=== PATIENT | female | born 2000 | race Two or more races ===

== ENCOUNTER 2024-08-31 06:21 | Emergency (ER) | payer MEDICAID, OTHER ==
[~2024-08-31] VITALS: Ht 152.4 cm; Wt 73.4 kg
--- NOTE | 2024-08-31 06:48 | ED.PDOC ---
History of Present Illness HPI Comments 24-year-old female with no reported PMHx or PSHx presents with a chief complaint of sore throat x 2 months. Patient mentions that she was diagnosed with strep throat in July and was given Amoxicillin. Patient reports that she finished that course of antibiotics and still had throat pain and went to a second urgent care and got a "stronger antibiotic" for her throat. Patient is now reporting that she still has irritation in her throat. Patient denies any painful swallowing and is able to handle her secretions. No other symptoms or modifying factors present at this time. 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 Hx Family History Family History: Reviewed,noncontributory to illness Social History Smoker: Non-Smoker Alcohol: Denies ETOH Use Drugs: Denies Drug Use Lives In: Home Constitutional: denies: chills, diaphoresis, fatigue, fever, malaise, sweats, weakness, others EENTM: reports: throat pain; denies: blurred vision, double vision, ear bleeding, ear discharge, ear drainage, ear pain, ear ringing, eye pain, eye redness, hearing loss, mouth pain, mouth swelling, nasal discharge, nose bleeding, nose congestion, nose pain, photophobia, tearing, throat swelling, voice changes, others Respiratory: denies: cough, hemoptysis, orthopnea, SOB at rest, shortness of breath, SOB with excertion, stridor, wheezing, others Cardiovascular: denies: chest pain, dizzy spells, diaphoresis, Dyspnea on exertion, edema, irregular heart beat, left arm pain, lightheadedness, palpitations, PND, syncope, others Gastrointestinal: denies: abdomen distended, abdominal pain, blood streaked bowels, constipated, diarrhea, dysphagia, difficulty swallowing, hematemesis, melena, nausea, poor appetite, poor fluid intake, rectal bleeding, rectal pain, vomiting, others Genitourinary: denies: abnormal vagina bleeding, burning, dyspareunia, dysuria, flank pain, frequency, hematuria, incontinence, pain, , vagina discharge, urgency, others Neurological: denies: dizziness, fainting, headache, left sided numbness, left sided weakness, numbness, paresthesia, pre-existing deficit, right sided numbness, right sided weakness, seizure, speech problems, tingling, tremors, weakness, others Musculoskeletal: denies: back pain, gout, joint pain, joint swelling, muscle pain, muscle stiffness, neck pain, others Integumetry: denies: bruises, change in color, change in hair/nails, dryness, laceration, lesions, lumps, rash, wounds, others Allergic/Immunocompromised: denies: Difficulty Healing, Frequent Infections, Hives, Itching, others Hematologic/Lymphatic: denies: anemia, blood clots, easy bleeding, easy bruising, swollen glands, others Endocrine: denies: excessive hunger, excessive sweating, excessive thirst, excessive urination, flushing, intolerance to cold, intolerance to heat, unexp lained weight gain, unexplained weight loss, others Psychiatric: denies: anxiety, bipolar disorder, depression, hopeless, panic disorder, schizophrenia, sleepless, suicidal, others All Other Systems: Reviewed and Negative Physical Exam General Appearance: No Apparent Distress, Normal HEENT: Normal ENT Inspection, Pharynx Normal, TMs Normal Neck: Full Range of Motion, Non-Tender, Normal, Normal Inspection Respiratory: Chest Non-Tender, Lungs Clear, No Accessory Muscle Use, No Respiratory Distress, Normal Breath Sounds Cardiovascular: No Edema, No JVD, No Murmur, No Gallop, Normal Peripheral Pulse s, Regular Rate/Rhythm Breast Exam: Deferred Gastrointestinal: No Organomegaly, Non Tender, No Pulsatile Mass, Normal Bowel Sounds, Soft Genitalia: Deferred Pelvic: Deferred Rectal: Deferred Extremities: No calf tenderness, Normal capillary refill, Normal inspection, Normal range of motion, Non-tender, No pedal edema Musculoskeletal : Apperance: Normal Neurologic: Alert, supervisor tank house II-XII nml as Tested, No Motor Deficits, Normal Affect, Normal Mood, No Sensory Deficits Cerebellar Function: Normal Reflexes: Normal Skin: Dry, Normal Color, Warm Lymphatic: No Adenopathy Was a procedure done? Was a procedure done?: No Differential Dx Considerations may include: Pharyngitis, viral syndrome X-Ray, Labs, Meds, VS Vital Signs Date Time Temp Pulse Resp B/P (MAP) Pulse Ox O2 Delivery O2 Flow Rate FiO2 08/31/24 06:38 99.1 75 16 135/75 (95) 100 Time of 1ST Reevaluation: 07:12 Reevaluation 1ST: Unchanged Patient Education/Counseling: Diagnosis, Treatment, Prognosis Family Education/Counseling: Diagnosis, Treatment, Prognosis Departure 1 Departure Time of Disposition: 06:51 (Patient with a sore throat that was on 2 rounds of antibiotics. We will treat patient for symptoms and have her follow up with the ENT.) Impression: Primary Impression: Pharyngitis Qualified Codes: J02.9 - Acute pharyngitis, unspecified Disposition: 01 HOME / SELF CARE / HOMELESS Condition: Stable Additional Instructions: You have pharyngitis. This usually resolves on its own over a period of several weeks. You can follow up with an Ear Nose and Throat Surgeon, Dr. Jus Brasher. Please call [phone] for an appointment. For pain you can take the followinam: Ibuprofen 400mg with food Noon: Acetaminophen 1000mg 4pm: Ibuprofen 400mg with food 8pm: Acetaminophen 1000mg If your symptoms worsen or you have any other concerns then please return to the ER. Discharged With: Self Critical Care Note Critical Care Time?: No Stability Stability form required: No I personally scribed for JESSICA CRUZ MD ([email or web address]) on 08/31/24 at 06:48. Electronically submitted by Azael Lux ([email or web address]). JESSICA CRUZ MD Aug 31, 2024 06:48
[2024-08-31] MEDS: DexAMETHasone SOD PHOS 10MG/1ML VIAL INJ PO ONE (06:54)
[2024-08-31 06:59] VITALS: BP 135/75; PULSE 75; RESP 16; TEMP 99.1; O2SAT 100
== END 2024-08-31 07:00 | disposition home or self-care (01) ==
LOC: ER 06:21
DX: J02.9 Acute pharyngitis, unspecified (principal)
CPT/HCPCS: 99283; J1100

== ENCOUNTER 2025-04-28 13:34 | Emergency (ER) | payer MEDICAID ==
[~2025-04-28] VITALS: Ht 154.9 cm; Wt 69.3 kg
[2025-04-28] MEDS ORDERED: NAPR-746 PO (14:39)
[2025-04-28] MEDS ORDERED: PRED20TA2 PO (14:39)
--- NOTE | 2025-04-28 14:39 | ED.PDOC ---
Eye-HPI HPI Comments 25-YEAR-OLD FEMALE PRESENTS TO THE ER WITH A THE CHIEF COMPLAINT OF A SORE THROAT RADIATING TO THE RIGHT EAR. PATIENT REPORTS ON HAVING BEEN EXPERIENCING A SORE THROAT FOR APPROXIMATELY ONE WEEK, WHICH HAS BEEN PROGRESSIVELY WORSE AND NOW RATING TO THE RIGHT EAR. THE PATIENT DENIES ANY RECENT EXPOSURE TO INDIVIDUALS WITH STREP THROAT AT THIS TIME. IN ADDITION TO THE SORE THROAT, THEY HAVE SYMPTOMS CONSISTENT WITH A COMMON COLD INCLUDING MUCUS PRODUCTION, COUGHING, AND NASAL CONGESTION. THE PATIENT HAS BEEN MANAGING THESE SYMPTOMS WITH THE [id number]-[id number] PAIN MEDICATIONS AND DAY NIGHT PILLS. THERE HAS A HISTORY OF A PREVIOUS THROAT FROM FOR WHICH THEY RECEIVED TREATMENT AT THE SAME FACILITY, WHERE STEROIDS WERE PRESCRIBED AND FOUND HELPFUL. DURING THE REVIEW OF SYMPTOMS THEY DENY ANY LOSS OF TASTE OR SMELL AT THIS TIME, AND MENTIONED THAT THE EAR IS STARTING TO HURT. DENIES ANY OTHER SYMPTOMS AT THIS TIME. DENIES FEVERS CHILLS NIGHT SWEATS UNINTENTIONAL WEIGHT LOSS DENIES PERSISTENT CHEST PAIN, SHORTNESS OF BREATH, LEG SWELLING DENIES HISTORY OF ASTHMA NOR ANY BREATHING CONDITIONS DENIES HISTORY OF PNEUMONIA DENIES RECENT INTERNATIONAL TRAVEL Chief Complaint: Sore Throat Time Seen by MD: 14:45 Reviewed Notes: Nurses Notes, Medications, Allergies Allergies: Coded Allergies: NO KNOWN ALLERGIES (Unverified , 08/31/24) Home Meds Active Scripts Naproxen (Naproxen) 500 Mg Tab, 500 MG PO BID for 10 Days, #20 TAB 0 Refills Prov:JAMAAL CARDOZO NP 04/28/25 Prednisone (Prednisone) 20 Mg Tab, 20 MG PO DAILY for 5 Days, #10 TAB 0 Refills Prov:JAMAAL CARDOZO NP 04/28/25 Information Source: Patient Mode of Arrival: Ambulatory Timing: Days Duration: Since onset, Days Prehospital treatment: None Lids: Normal Conjunctiva: Normal Cornea: Normal Pupils: Normal EOM: Normal Fundus: Normal Slit lamp exam: Normal Anterior chamber: Normal Mouth: Normal ENT Ear Exam: Normal Nose: Normal Sinuses: Normal Oropharynx: Normal Onset: Spontaneous Throat Exposed to: None History of: None Associated signs and symptoms: Sore Throat, Ear Pain Past Medical History PAST MEDICAL HISTORY: Denies Surgical History: Denies all surgeries OFFICE 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 OFFICE TECHNICIAN Hx Family History Family History: Reviewed,noncontributory to illness, Unknown Social History Smoker: Non-Smoker Alcohol: Denies ETOH Use Drugs: Denies Drug Use Lives In: Home Constitutional: denies: chills, diaphoresis, fatigue, fever, malaise, sweats, weakness, others EENTM: reports: ear pain, nose congestion, throat pain, throat swelling; denies: blurred vision, double vision, ear bleeding, ear discharge, ear drainage, ear ringing, eye pain, eye redness, hearing loss, mouth pain, mouth swelling, nasal discharge, nose bleeding, nose pain, photophobia, tearing, voice changes, others Respiratory: reports: cough; denies: hemoptysis, orthopnea, SOB at rest, shortness of breath, SOB with excertion, stridor, wheezing, others Cardiovascular: denies: chest pain, dizzy spells, diaphoresis, Dyspnea on exertion, edema, irregular heart beat, left arm pain, lightheadedness, palpitations, PND, syncope, others Gastrointestinal: denies: abdomen distended, abdominal pain, blood streaked bowels, constipated, diarrhea, dysphagia, difficulty swallowing, hematemesis, melena, nausea, poor appetite, poor fluid intake, rectal bleeding, rectal pain, vomiting, others Genitourinary: denies: abnormal vagina bleeding, burning, dyspareunia, dysuria, flank pain, frequency, hematuria, incontinence, pain, , vagina dis charge, urgency, others Neurological: denies: dizziness, fainting, headache, left sided numbness, left sided weakness, numbness, paresthesia, pre-existing deficit, right sided numbness, right sided weakness, seizure, speech problems, tingling, tremors, weakness, others Musculoskeletal: denies: back pain, gout, joint pain, joint swelling, muscle pain, muscle stiffness, neck pain, others Integumetry: denies: bruises, change in color, change in hair/nails, dryness, laceration, lesions, lumps, rash, wounds, others Allergic/Immunocompromised: denies: Difficulty Healing, Frequent Infections, Hives, Itching, others Hematologic/Lymphatic: denies: anemia, blood clots, easy bleeding, easy bruising, swollen glands, others Endocrine: denies: excessive hunger, excessive sweating, excessive thirst, excessive urination, flushing, intolerance to cold, intolerance to heat, unexplained weight gain, unexplained weight loss, others Psychiatric: denies: anxiety, bipolar disorder, depression, hopeless, panic disorder, schizophrenia, sleepless, suicidal, others All Other Systems: Reviewed and Negative Physical Exam Exam Comments UVULA MIDLINE, MMM General Appearance: No Apparent Distress, Normal HEENT: Normal ENT Inspection, Pharynx Normal, TMs Normal Neck: Full Range of Motion, Non-Tender, Normal, Normal Inspection Respiratory: Chest Non-Tender, Lungs Clear, No Accessory Muscle Use, No Respiratory Distress, Normal Breath Sounds Cardiovascular: No Edema, No JVD, No Murmur, No Gallop, Normal Peripheral Pulses, Regular Rate/Rhythm Breast Exam: Deferred Gastrointestinal: No Organomegaly, Non Tender, No Pulsatile Mass, Normal Bowel Sounds, Soft Genitalia: Deferred Pelvic: Deferred Rectal: Deferred Extremities: No calf tenderness, Normal capillary refill, Normal inspection, Normal range of motion, Non-tender, No pedal edema Musculoskeletal : Apperance: Normal Neurologic: Alert, biochemist II-XII nml as Tested, No Motor Deficits, Normal Affect, Normal Mood, No Sensory Deficits Cerebellar Function: Normal Reflexes: Normal Skin: Dry, Normal Color, Warm Lymphatic: No Adenopathy Was a procedure done? Was a procedure done?: No EENT DIFF Eye: N/A Ear: Pharyngitis Nose: N/A Mouth: N/A Sore Throat: N/A X-Ray, Labs, Meds, VS Vital Signs Date Time Temp Pulse Resp B/P (MAP) Pulse Ox O2 Delivery O2 Flow Rate FiO2 04/28/25 14:59 81 18 99 Room Air 04/28/25 14:59 98.1 81 18 134/92 (106) 99 98.1 04/28/25 13:35 98.2 88 16 120/95 98 98.2 X-Ray, Labs, Meds, VS Comment 25-YEAR-OLD FEMALE PRESENTS TO THE ER WITH A THE CHIEF COMPLAINT OF A SORE THROAT RADIATING TO THE RIGHT EAR. PATIENT ARRIVES ALERT AND ORIENTED, ABC'S INTACT, AFEBRILE, VITAL SIGNS STABLE, SATURATING WELL IN ROOM AIR Patient presents with a chief complaint of a sore throat. After review of systems and physical examination there are no no concerns or red flags for peritonsillar abscess, abscess formation, epiglottitis, retropharyngeal abscess formation or airway obstruction. No concerns for peritonsillar abscess as patient denies severe sore throat, muffled or hot potato voice, and difficulty handling secretions. No concerns for abscess formation as the soft palate is symmetrical and there is no displacement of the uvula and the uvula is also midline. No concerns for epiglottitis as patient denies severe sore throat, dysphagia, muffled voice, patient is not drooling nor is patient in tripod position. No signs of retropharyngeal abscess formation as patient has no fevers, stiff neck, drooling no stridor No signs of airway obstruction as patient denies sensation of foreign body vital signs stable on room air. No indication for ABX per [facility] Encouraged fluid intake Acetaminophen to reduce pain/fever NSAIDs to reduce pain/fever Nonpharmacological recommendations given Warm salt water gargles Throat lozenges Humidified air ADDITIONAL MDM REVIEW OF EXTERNAL, NON-ED RECORDS: EXTERNAL RECORDS REVIEWED. DISCUSSION WITH INDEPENDENT HISTORIAN (EMS, FAMILY) HISTORY OBTAINED FROM THE PATIENT/PARENTS (IF APPLICABLE) AT BEDSIDE CHRONIC CONDITIONS AFFECTING CARE: NONE SOCIAL DETERMINANTS OF HEALTH AFFECTING CARE: NONE CONSIDERATION OF ADMISSION (OBSERVATION OR ADMISSION): I CONSIDERED ESCALATION OF CARE TO ADMISSION FOR THIS PATIENT, HOWEVER GIVEN THE REASSURING WORKUP, THE PATIENT IS SAFE FOR OUTPATIENT MANAGEMENT. DISCUSSION WITH THE RADIOLOGY: NO TESTS CONSIDERED BUT NOT PERFORMED: PRESCRIPTION MEDICATION CONSIDERED BUT NOT GIVEN: 12 LEAD EKG INTERPRETATION: Time of 1ST Reevaluation: 15:15 Reevaluation 1ST: Improved Patient Education/Counseling: Diagnosis, Treatment, Prognosis Family Education/Counseling: No Family Present SEPSIS Sepsis Screen Date sepsis recognized/suspect: Apr 28, 2025 Time Sepsis recognized/suspect: 1335 Recent Procedure: No On Antibiotic Therapy: No Respiratory Rate >20: No Heart Rate >90: No Temp<36 C (96.8 F) or >38.3 C: No SBP <90 or MAP <65 mmHG: No New Acute Mental Status Change: No Is the patient on CPAP, BIPAP,: No Vital Signs Date Time Temp Pulse Resp B/P (MAP) Pulse Ox O2 Delivery O2 Flow Rate FiO2 04/28/25 14:59 81 18 99 Room Air 04/28/25 14:59 98.1 81 18 134/92 (106) 99 98.1 04/28/25 13:35 98.2 88 16 120/95 98 98.2 Departure 1 Departure Time of Disposition: 14:37 Impression: Primary Impression: Pharyngitis Qualified Codes: J02.9 - Acute pharyngitis, unspecified Disposition: HOME / SELF CARE / HOMELESS Condition: Stable e-Prescriptions Naproxen (Naproxen) 500 Mg Tab 500 MG PO BID for 10 Days, #20 TAB 0 Refills Prov: JAMAAL CARDOZO NP 04/28/25 Prednisone (Prednisone) 20 Mg Tab 20 MG PO DAILY for 5 Days, #10 TAB 0 Refills Prov: JAMAAL CARDOZO NP 04/28/25 Critical Care Note Critical Care Time?: No Stability Stability form required: No Heart Score Heart Score: Heart Score Response (Comments) Value History N/A 0 EKG N/A 0 Age N/A 0 Risk Factors N/A 0 Troponin N/A 0 Total 0 I personally scribed for JAMAAL CARDOZO NP ([email or web address]) on 04/28/25 at 14:46. Electronically submitted by Siddhartha Ellis ([email or web address]). I personally scribed for JAMAAL CARDOZO NP ([email or web address]) on 04/28/25 at 14:56. Electronically submitted by Siddhartha Ellis ([email or web address]). JAMAAL CARDOZO NP Apr 28, 2025 14:39
[2025-04-28 14:59] VITALS: BP 134/92; PULSE 81; RESP 18; TEMP 98.1; O2SAT 99
== END 2025-04-28 15:00 | disposition home or self-care (01) ==
LOC: ER 13:34
DX: J02.9 Acute pharyngitis, unspecified (principal)